=== PATIENT | male | born 1990 | race Caucasian/White ===

== ENCOUNTER 2021-10-21 11:26 | Emergency (ER) | payer BC, OTHER ==
[~2021-10-21] VITALS: Ht 185.4 cm; Wt 98.4 kg
--- NOTE | 2021-10-21 11:35 | NUR ---
BIB 878 HOME W/ C/O LOWER BACK PAIN R/T RLE X 1 MONTH, WORST SINCE FRIDAY. A/O X4. TO ER BED 13.
[2021-10-21] MEDS ORDERED: KETOROLAC TROMETHAMINE INJ 30 MG/ML VIAL ONE (12:07)
[2021-10-21] MEDS: KETOROLAC TROMETHAMINE INJ 60 MG/2 ML VIAL IM ONE (12:11)
[2021-10-21 12:38] VITALS: BP 137/80
--- NOTE | 2021-10-21 12:41 | NUR ---
Patient discharged to home in stable condition. Written and verbal after care instructions given. Patient verbalizes understanding of instruction.
== END 2021-10-21 12:42 | disposition home or self-care (01) ==
LOC: ER 11:28
DX: M54.50 Low back pain, unspecified (principal)
CPT/HCPCS: 99283; 96372; 72100; J1885